=== PATIENT | male | born 1980 | race Caucasian/White ===

== ENCOUNTER 2019-01-09 20:16 | Emergency (ER) | payer BC ==
[~2019-01-09] VITALS: Ht 175.3 cm; Wt 68.2 kg
[~2019-01-09 20:16] MED LIST: NO HOME MEDICATIONS
[2019-01-09 20:35] VITALS: BP 105/71; TEMP 97.5
[2019-01-09 21:52] VITALS: PULSE 68
== END 2019-01-09 21:52 | disposition home or self-care (01) ==
LOC: COL.ER 20:16
DX: S50.02XA Contusion of left elbow, initial encounter (principal); W00.0XXA Fall on same level due to ice and snow, initial encounter; Y92.009 Unspecified place in unspecified non-institutional (private) residence as the place of occurrence of the external cause

== ENCOUNTER → 2020-09-13 | Outpatient (CLI) | payer BC | LOC: COL.RAD 07:36 | DX: R10.9 Unspecified abdominal pain (principal); Z98.52 Vasectomy status ==

== ENCOUNTER 2022-08-03 18:29 | Emergency (ER) | payer BC ==
[~2022-08-03] VITALS: Ht 175.3 cm; Wt 77.3 kg
[2022-08-03 18:30] VITALS: TEMP 98
[2022-08-03 19:52] VITALS: BP 111/64; PULSE 69
== END 2022-08-03 20:01 | disposition home or self-care (01) ==
LOC: COL.ER 18:29
DX: S61.215A Laceration without foreign body of left ring finger without damage to nail, initial encounter (principal); Z23 Encounter for immunization; W49.04XA Ring or other jewelry causing external constriction, initial encounter